=== PATIENT | male | born 1960 | race African-American/Black ===

== ENCOUNTER 2020-12-24 12:12 | Inpatient (IN) | payer OTHER ==
[2020-12-24 13:36] VITALS: BMI 21.1
[2020-12-24] MEDS ORDERED: ACETAMINOPHEN 325 MG TABLET (FP) PO PRN ×2 (13:36)
[2020-12-24] MEDS ORDERED: MAG HYDROX/AL HYDROX/SIMETH 30 ML UNIT-DOSE CUP PO PRN (13:36)
[2020-12-24] MEDS ORDERED: ONDANSETRON *ODT* 4 MG TABLET SL PRN (13:36)
[2020-12-24] MEDS ORDERED: chlordiazePOXIDE HCL 25 MG CAPSULE PO PRN (13:36)
[2020-12-24] MEDS ORDERED: IBUPROFEN 400 MG TABLET (FP) PO PRN (13:36)
[2020-12-24] MEDS ORDERED: MAGNESIUM CITRATE 300 ML BOTTLE PO PRN (13:36)
[2020-12-24] MEDS ORDERED: MAGNESIUM HYDROX 2400MG/30ML ORAL SUSPENSION 30 ML CUP PO PRN (13:36)
[2020-12-24] MEDS ORDERED: METHOCARBAMOL 500 MG TABLET PO PRN (13:36)
[2020-12-24 14:53] LABS: HEMATOCRIT 34.1 % (35.4-49); HEMOGLOBIN 11.2 GM/dL (11.7-16.9); MCH 30.2 pg (25.7-33.7); MCHC 32.8 g/dl (32.0-35.9); MEAN CELL VOLUME 92.2 fl (80-96); MEAN PLT VOLUME 10.7 fl (7.5-11.1); PLATELET COUNT 68 K/MM3 (134-434); RDW 17.1 % (11.9-15.9); WHITE BLOOD COUNT 2.6 K/mm3 (4.0-10.0)
[2020-12-24 14:56] LABS: POTASSIUM 4.2 mmol/L (3.5-5.1)
[2020-12-24 15:03] LABS: BLOOD UREA NITROGEN 20.2 mg/dL (7-18)
[2020-12-24 15:04] LABS: ALBUMIN 2.9 g/dl (3.4-5.0)
[2020-12-24 15:05] LABS: BILIRUBIN,TOTAL 0.4 mg/dL (0.2-1); TOT PROT 8.1 g/dl (6.4-8.2)
[2020-12-24 15:07] LABS: CREATININE 1.9 mg/dL (0.55-1.3)
[2020-12-24] MEDS: PRENATAL VITAMINS W/ FOLIC ACID TABLET (FP) PO SCH (15:51)
[2020-12-24] MEDS: hydrOXYzine PAMOATE 25 MG CAPSULE (FP) PO SCH ×3 (15:53→22:48)
[2020-12-24] MEDS: cloNIDine HCL 0.1 MG TABLET PO SCH (17:30)
[2020-12-24] MEDS: chlordiazePOXIDE HCL 25 MG CAPSULE PO SCH ×2 (17:31→23:06)
[2020-12-24] MEDS: amLODIPine BESYLATE 10 MG TABLET (FP) PO SCH (17:32)
[2020-12-24] MEDS: MELATONIN 5 MG TABLETS PO SCH (22:48)
[2020-12-24] MEDS: MIRTAZAPINE 15 MG TABLET (FP) PO SCH (22:48)
[2020-12-24] MEDS: THIAMINE HCL 100 MG TABLET (FP) PO SCH (22:48)
[2020-12-25] MEDS: chlordiazePOXIDE HCL 25 MG CAPSULE PO SCH ×4 (05:05→22:19)
[2020-12-25] MEDS: hydrOXYzine PAMOATE 25 MG CAPSULE (FP) PO SCH ×5 (05:06→22:19)
[2020-12-25] MEDS: PRENATAL VITAMINS W/ FOLIC ACID TABLET (FP) PO SCH (10:30)
[2020-12-25] MEDS: amLODIPine BESYLATE 10 MG TABLET (FP) PO SCH (10:30)
[2020-12-25] MEDS: BISMUTH SUBSALICYLATE 524 MG/30 ML UD PO PRN (10:35)
[2020-12-25] MEDS: METHADONE HCL 40 MG DISPERSABLE TABLET PO SCH (10:38)
[2020-12-25] MEDS: cloNIDine HCL 0.1 MG TABLET PO SCH (10:39)
[2020-12-25 16:34] LABS: HEMOGLOBIN 11.1 GM/dL (11.7-16.9); MCHC 32.5 g/dl (32.0-35.9); MEAN CELL VOLUME 92.5 fl (80-96); MEAN PLT VOLUME 10.7 fl (7.5-11.1); PLATELET COUNT 63 K/MM3 (134-434); POTASSIUM 4.1 mmol/L (3.5-5.1); RBC 3.68 M/mm3 (4.00-5.60); RDW 17.2 % (11.9-15.9)
[2020-12-25 16:37] LABS: CALCIUM 7.8 mg/dL (8.5-10.1)
[2020-12-25 16:38] LABS: ALBUMIN 2.8 g/dl (3.4-5.0); BLOOD UREA NITROGEN 21.4 mg/dL (7-18)
[2020-12-25 16:41] LABS: CREATININE 1.8 mg/dL (0.55-1.3)
[2020-12-25 16:42] LABS: TOT PROT 7.5 g/dl (6.4-8.2)
[2020-12-25 16:48] LABS: INR 1.03 (0.83-1.09); PROTHROMBIN TIME (PATIENT) 12.4 SEC (9.7-13.0)
[2020-12-25] MEDS: MIRTAZAPINE 15 MG TABLET (FP) PO SCH (22:19)
[2020-12-25] MEDS: MELATONIN 5 MG TABLETS PO SCH (22:19)
[2020-12-25] MEDS: THIAMINE HCL 100 MG TABLET (FP) PO SCH (22:19)
[2020-12-25] MEDS: MENTHOL/PHENOL 1 EACH UD MM PRN (22:21)
[2020-12-26] MEDS: chlordiazePOXIDE HCL 25 MG CAPSULE PO SCH ×4 (06:42→22:10)
[2020-12-26] MEDS: hydrOXYzine PAMOATE 25 MG CAPSULE (FP) PO SCH ×5 (06:42→22:10)
[2020-12-26] MEDS: METHADONE HCL 40 MG DISPERSABLE TABLET PO SCH (06:48)
[2020-12-26] MEDS: MENTHOL/PHENOL 1 EACH UD MM PRN ×3 (06:50→22:14)
[2020-12-26] MEDS: cloNIDine HCL 0.1 MG TABLET PO SCH (10:00)
[2020-12-26] MEDS: amLODIPine BESYLATE 10 MG TABLET (FP) PO SCH (10:00)
[2020-12-26] MEDS: PRENATAL VITAMINS W/ FOLIC ACID TABLET (FP) PO SCH (10:01)
[2020-12-26] MEDS: MELATONIN 5 MG TABLETS PO SCH (22:10)
[2020-12-26] MEDS: MIRTAZAPINE 15 MG TABLET (FP) PO SCH (22:10)
[2020-12-26] MEDS: THIAMINE HCL 100 MG TABLET (FP) PO SCH (22:11)
[2020-12-26] MEDS: BISMUTH SUBSALICYLATE 524 MG/30 ML UD PO PRN (22:14)
[2020-12-27] MEDS ORDERED: chlordiazePOXIDE HCL 10 MG CAPSULE PO PRN
[2020-12-27] MEDS: hydrOXYzine PAMOATE 25 MG CAPSULE (FP) PO SCH ×5 (05:53→22:57)
[2020-12-27] MEDS: METHADONE HCL 40 MG DISPERSABLE TABLET PO SCH (05:54)
[2020-12-27] MEDS: chlordiazePOXIDE HCL 10 MG CAPSULE PO SCH ×4 (05:54→22:56)
[2020-12-27] MEDS: PRENATAL VITAMINS W/ FOLIC ACID TABLET (FP) PO SCH (10:18)
[2020-12-27] MEDS: amLODIPine BESYLATE 10 MG TABLET (FP) PO SCH (10:18)
[2020-12-27] MEDS: cloNIDine HCL 0.1 MG TABLET PO SCH (10:19)
[2020-12-27] MEDS: CALCIUM CARBONATE 650 MG TABLET PO SCH ×2 (15:34→22:55)
[2020-12-27 16:57] LABS: POTASSIUM 4.3 mmol/L (3.5-5.1)
[2020-12-27 16:59] LABS: BASO % 1.4 % (0-2.0); EOS % 0.9 % (0-4.5); HEMATOCRIT 35.8 % (35.4-49); HEMOGLOBIN 11.6 GM/dL (11.7-16.9); LYMPH % 64.4 % (8-40); MCHC 32.3 g/dl (32.0-35.9); MEAN PLT VOLUME 11.5 fl (7.5-11.1); MONO % 4.4 % (3.8-10.2); NEUT % 28.9 % (42.8-82.8); PLATELET COUNT 69 K/MM3 (134-434); RBC 3.85 M/mm3 (4.00-5.60); RDW 17.1 % (11.9-15.9); WHITE BLOOD COUNT 3.7 K/mm3 (4.0-10.0)
[2020-12-27 17:02] LABS: BLOOD UREA NITROGEN 19.2 mg/dL (7-18); CALCIUM 8.1 mg/dL (8.5-10.1)
[2020-12-27 17:05] LABS: CREATININE 1.7 mg/dL (0.55-1.3)
[2020-12-27 18:00] LABS: ANISOCYTOSIS 1+; MACROCYTOSIS 0; PLATELET ESTIMATE DECREASED
[2020-12-27] MEDS: THIAMINE HCL 100 MG TABLET (FP) PO SCH (22:57)
[2020-12-27] MEDS: MIRTAZAPINE 15 MG TABLET (FP) PO SCH (22:57)
[2020-12-27] MEDS: MELATONIN 5 MG TABLETS PO SCH (22:57)
[2020-12-28] MEDS: METHADONE HCL 40 MG DISPERSABLE TABLET PO SCH (05:38)
[2020-12-28] MEDS: chlordiazePOXIDE HCL 10 MG CAPSULE PO SCH ×2 (05:38→17:54)
[2020-12-28] MEDS: hydrOXYzine PAMOATE 25 MG CAPSULE (FP) PO SCH ×2 (05:39→10:31)
[2020-12-28] MEDS: MENTHOL/PHENOL 1 EACH UD MM PRN ×3 (05:42→19:00)
[2020-12-28] MEDS: CALCIUM CARBONATE 650 MG TABLET PO SCH ×2 (10:31→22:16)
[2020-12-28] MEDS: cloNIDine HCL 0.1 MG TABLET PO SCH (10:31)
[2020-12-28] MEDS: PRENATAL VITAMINS W/ FOLIC ACID TABLET (FP) PO SCH (10:31)
[2020-12-28] MEDS: amLODIPine BESYLATE 10 MG TABLET (FP) PO SCH (10:32)
[2020-12-28] MEDS ORDERED: hydrOXYzine PAMOATE 25 MG CAPSULE (FP) PO SCH (11:45)
[2020-12-28] MEDS ORDERED: hydrOXYzine PAMOATE 25 MG CAPSULE (FP) PO PRN (12:51)
[2020-12-28] MEDS ORDERED: chlordiazePOXIDE HCL 25 MG CAPSULE PO PRN (12:51)
[2020-12-28] MEDS: MIRTAZAPINE 15 MG TABLET (FP) PO SCH (22:16)
[2020-12-28] MEDS: THIAMINE HCL 100 MG TABLET (FP) PO SCH (22:16)
[2020-12-28] MEDS: MELATONIN 5 MG TABLETS PO SCH (22:16)
[2020-12-29] MEDS ORDERED: chlordiazePOXIDE HCL 10 MG CAPSULE PO ONE (05:00)
[2020-12-29] MEDS: METHADONE HCL 40 MG DISPERSABLE TABLET PO SCH (05:01)
[2020-12-29] MEDS: CALCIUM CARBONATE 650 MG TABLET PO SCH ×2 (10:08→22:15)
[2020-12-29] MEDS: PRENATAL VITAMINS W/ FOLIC ACID TABLET (FP) PO SCH (10:09)
[2020-12-29] MEDS: amLODIPine BESYLATE 10 MG TABLET (FP) PO SCH (10:09)
[2020-12-29] MEDS: cloNIDine HCL 0.1 MG TABLET PO SCH (10:09)
[2020-12-29] MEDS: MIRTAZAPINE 15 MG TABLET (FP) PO SCH (22:14)
[2020-12-29] MEDS: MELATONIN 5 MG TABLETS PO SCH (22:15)
[2020-12-29] MEDS: THIAMINE HCL 100 MG TABLET (FP) PO SCH (22:15)
[2020-12-29] MEDS: MENTHOL/PHENOL 1 EACH UD MM PRN (22:16)
[2020-12-30] MEDS: METHADONE HCL 40 MG DISPERSABLE TABLET PO SCH (06:30)
[2020-12-30 07:13] VITALS: BP 141/78; PULSE 92; TEMP 98.1
== END 2020-12-29 23:28 | disposition other institution (70) | DRG 773 ==
LOC: YASAS 12:12 → UNDOADMIN 14:33 → Y3N 14:33 → UNDOADMIN 12-29 22:49 → Y3W 12-29 22:49 → Y3N 12-29 22:49 → Y3W 12-29 23:50 → Y3N 12-29 23:59 → Y3W 12-29 23:59
PROVIDERS: ADMIT Allergy & Immunology; ATTEND Allergy & Immunology
PROC: HZ2ZZZZ Detoxification Services for Substance Abuse Treatment (ICD-10-PCS; principal; 2020-12-24)
DX: F10.230 Alcohol dependence with withdrawal, uncomplicated (principal); F13.20 Sedative, hypnotic or anxiolytic dependence, uncomplicated; F11.20 Opioid dependence, uncomplicated; Z21 Asymptomatic human immunodeficiency virus [HIV] infection status; D61.818 Other pancytopenia; N17.9 Acute kidney failure, unspecified; E88.09 Other disorders of plasma-protein metabolism, not elsewhere classified; D72.819 Decreased white blood cell count, unspecified; I12.9 Hypertensive chronic kidney disease with stage 1 through stage 4 chronic kidney disease, or unspecified chronic kidney disease; N18.9 Chronic kidney disease, unspecified; M17.0 Bilateral primary osteoarthritis of knee; G47.00 Insomnia, unspecified; R74.01 Elevation of levels of liver transaminase levels; Z56.0 Unemployment, unspecified; Z59.0 Homelessness
CPT/HCPCS: 36415; 80048; 80053; 85025; 85027; 85610; 86780; C9803; J0735; U0003

== ENCOUNTER 2020-12-29 22:49 | Inpatient (IN) | payer OTHER ==
[2020-12-30] MEDS ORDERED: IBUPROFEN 400 MG TABLET (FP) PO PRN (10:41)
[2020-12-30] MEDS ORDERED: ACETAMINOPHEN 325 MG TABLET (FP) PO PRN (10:41)
[2020-12-30] MEDS ORDERED: NICOTINE POLACRILEX 2 MG GUM BUC PRN (10:41)
[2020-12-30] MEDS ORDERED: P-EPHED 60MG/TRIPROLIDI 2.5MG TABLET PO PRN (10:41)
[2020-12-30] MEDS ORDERED: MAG HYDROX/AL HYDROX/SIMETH 30 ML UNIT-DOSE CUP PO PRN (10:41)
[2020-12-30] MEDS ORDERED: guaiFENesin 200 MG/10 ML 10 ML UNIT-DOSE CUPS PO PRN (10:41)
[2020-12-30] MEDS ORDERED: LOPERAMIDE HCL 2 MG CAPSULE PO PRN (10:41)
[2020-12-30] MEDS ORDERED: MAGNESIUM CITRATE 300 ML BOTTLE PO PRN (10:41)
[2020-12-30] MEDS ORDERED: cloNIDine HCL 0.1 MG TABLET PO SCH (11:11)
[2020-12-30] MEDS ORDERED: amLODIPine BESYLATE 10 MG TABLET (FP) PO SCH (11:11)
[2020-12-30] MEDS ORDERED: CALCIUM CARBONATE 650 MG TABLET PO SCH (11:13)
[2020-12-30] MEDS ORDERED: amLODIPine BESYLATE 10 MG TABLET (FP) PO ONE (12:11)
[2020-12-30] MEDS ORDERED: CALCIUM CARBONATE 650 MG TABLET PO ONE (12:13)
[2020-12-30] MEDS ORDERED: cloNIDine HCL 0.1 MG TABLET PO ONE (12:18)
[2020-12-30] MEDS ORDERED: hydrOXYzine PAMOATE 25 MG CAPSULE (FP) PO SCH (14:00)
[2020-12-30] MEDS: MAGNESIUM HYDROX 2400MG/30ML ORAL SUSPENSION 30 ML CUP PO PRN (15:36)
[2020-12-30] MEDS ORDERED: LORATADINE 10 MG TABLET PO PRN (15:53)
[2020-12-30] MEDS: MELATONIN 5 MG TABLETS PO SCH (21:20)
[2020-12-30] MEDS: THIAMINE HCL 100 MG TABLET (FP) PO SCH (21:20)
[2020-12-30] MEDS: MIRTAZAPINE 15 MG TABLET (FP) PO SCH (21:21)
[2020-12-30] MEDS: hydrOXYzine PAMOATE 25 MG CAPSULE (FP) PO PRN (21:22)
[2020-12-30] MEDS ORDERED: DOCUSATE SODIUM 100 MG CAPSULE (FP) PO SCH (22:00)
[2020-12-31] MEDS: hydrOXYzine PAMOATE 25 MG CAPSULE (FP) PO PRN ×3 (06:30→21:15)
[2020-12-31] MEDS: MENTHOL/PHENOL 1 EACH UD MM PRN (06:30)
[2020-12-31] MEDS: METHADONE HCL 40 MG DISPERSABLE TABLET PO SCH (06:30)
[2020-12-31] MEDS ORDERED: PRENATAL VITAMINS W/ FOLIC ACID TABLET (FP) PO SCH (10:00)
[2020-12-31] MEDS ORDERED: cloNIDine HCL 0.1 MG TABLET PO SCH (10:00)
[2020-12-31] MEDS ORDERED: amLODIPine BESYLATE 10 MG TABLET (FP) PO SCH (10:00)
[2020-12-31] MEDS ORDERED: CALCIUM CARBONATE 650 MG TABLET PO SCH (10:00)
[2020-12-31] MEDS ORDERED: NICOTINE 7 MG/24 HOURS TOPICAL PATCH TD SCH (10:00)
[2020-12-31] MEDS: DOCUSATE SODIUM 100 MG CAPSULE (FP) PO SCH (10:49)
[2020-12-31] MEDS: cloNIDine HCL 0.1 MG TABLET PO SCH (10:50)
[2020-12-31] MEDS: CALCIUM CARBONATE 650 MG TABLET PO SCH (10:50)
[2020-12-31] MEDS: amLODIPine BESYLATE 10 MG TABLET (FP) PO SCH (10:50)
[2020-12-31] MEDS: PRENATAL VITAMINS W/ FOLIC ACID TABLET (FP) PO SCH (10:50)
[2020-12-31] MEDS: THIAMINE HCL 100 MG TABLET (FP) PO SCH (21:13)
[2020-12-31] MEDS: MIRTAZAPINE 15 MG TABLET (FP) PO SCH (21:13)
[2020-12-31] MEDS: MELATONIN 5 MG TABLETS PO SCH (21:13)
[2020-12-31] MEDS: MAGNESIUM HYDROX 2400MG/30ML ORAL SUSPENSION 30 ML CUP PO PRN (21:15)
[2021-01-01] MEDS: hydrOXYzine PAMOATE 25 MG CAPSULE (FP) PO PRN ×2 (05:59→10:45)
[2021-01-01] MEDS: METHADONE HCL 40 MG DISPERSABLE TABLET PO SCH (05:59)
[2021-01-01] MEDS: amLODIPine BESYLATE 10 MG TABLET (FP) PO SCH (10:45)
[2021-01-01] MEDS: DOCUSATE SODIUM 100 MG CAPSULE (FP) PO SCH (10:45)
[2021-01-01] MEDS: cloNIDine HCL 0.1 MG TABLET PO SCH (10:46)
[2021-01-01] MEDS: CALCIUM CARBONATE 650 MG TABLET PO SCH (10:46)
[2021-01-01] MEDS: PRENATAL VITAMINS W/ FOLIC ACID TABLET (FP) PO SCH (10:46)
[2021-01-01] MEDS: MENTHOL/PHENOL 1 EACH UD MM PRN (10:48)
[2021-01-01] MEDS: THIAMINE HCL 100 MG TABLET (FP) PO SCH (21:29)
[2021-01-01] MEDS: MIRTAZAPINE 15 MG TABLET (FP) PO SCH (21:29)
[2021-01-01] MEDS: MELATONIN 5 MG TABLETS PO SCH (21:29)
[2021-01-02] MEDS: METHADONE HCL 40 MG DISPERSABLE TABLET PO SCH (06:34)
[2021-01-02] MEDS: DOCUSATE SODIUM 100 MG CAPSULE (FP) PO SCH (10:57)
[2021-01-02] MEDS: PRENATAL VITAMINS W/ FOLIC ACID TABLET (FP) PO SCH (10:57)
[2021-01-02] MEDS: cloNIDine HCL 0.1 MG TABLET PO SCH (10:58)
[2021-01-02] MEDS: amLODIPine BESYLATE 10 MG TABLET (FP) PO SCH (10:58)
[2021-01-02] MEDS: CALCIUM CARBONATE 650 MG TABLET PO SCH (10:58)
[2021-01-02] MEDS: MAGNESIUM HYDROX 2400MG/30ML ORAL SUSPENSION 30 ML CUP PO PRN (15:41)
[2021-01-02] MEDS: THIAMINE HCL 100 MG TABLET (FP) PO SCH (21:04)
[2021-01-02] MEDS: MIRTAZAPINE 15 MG TABLET (FP) PO SCH (21:04)
[2021-01-02] MEDS: MELATONIN 5 MG TABLETS PO SCH (21:04)
[2021-01-03] MEDS: METHADONE HCL 40 MG DISPERSABLE TABLET PO SCH (06:34)
[2021-01-03] MEDS: MAGNESIUM HYDROX 2400MG/30ML ORAL SUSPENSION 30 ML CUP PO PRN (06:36)
[2021-01-03] MEDS: CALCIUM CARBONATE 650 MG TABLET PO SCH (09:44)
[2021-01-03] MEDS: DOCUSATE SODIUM 100 MG CAPSULE (FP) PO SCH (09:45)
[2021-01-03] MEDS: cloNIDine HCL 0.1 MG TABLET PO SCH (09:45)
[2021-01-03] MEDS: amLODIPine BESYLATE 10 MG TABLET (FP) PO SCH (09:47)
[2021-01-03] MEDS: PRENATAL VITAMINS W/ FOLIC ACID TABLET (FP) PO SCH (09:47)
[2021-01-03] MEDS: MENTHOL/PHENOL 1 EACH UD MM PRN (09:49)
[2021-01-03] MEDS: MIRTAZAPINE 15 MG TABLET (FP) PO SCH (21:29)
[2021-01-03] MEDS: MELATONIN 5 MG TABLETS PO SCH (21:29)
[2021-01-03] MEDS: THIAMINE HCL 100 MG TABLET (FP) PO SCH (21:29)
[2021-01-04] MEDS: METHADONE HCL 40 MG DISPERSABLE TABLET PO SCH (06:28)
[2021-01-04] MEDS: PRENATAL VITAMINS W/ FOLIC ACID TABLET (FP) PO SCH (10:51)
[2021-01-04] MEDS: cloNIDine HCL 0.1 MG TABLET PO SCH (10:51)
[2021-01-04] MEDS: DOCUSATE SODIUM 100 MG CAPSULE (FP) PO SCH (10:52)
[2021-01-04] MEDS: CALCIUM CARBONATE 650 MG TABLET PO SCH (10:52)
[2021-01-04] MEDS: amLODIPine BESYLATE 10 MG TABLET (FP) PO SCH (10:52)
[2021-01-04] MEDS: MELATONIN 5 MG TABLETS PO SCH (21:07)
[2021-01-04] MEDS: PSYLLIUM 5.85 GM PACKET PO SCH (21:09)
[2021-01-04] MEDS: MIRTAZAPINE 15 MG TABLET (FP) PO SCH (21:09)
[2021-01-04] MEDS: THIAMINE HCL 100 MG TABLET (FP) PO SCH (21:09)
[2021-01-05] MEDS: METHADONE HCL 40 MG DISPERSABLE TABLET PO SCH (05:56)
[2021-01-05] MEDS: PRENATAL VITAMINS W/ FOLIC ACID TABLET (FP) PO SCH (10:33)
[2021-01-05] MEDS: CALCIUM CARBONATE 650 MG TABLET PO SCH (10:33)
[2021-01-05] MEDS: cloNIDine HCL 0.1 MG TABLET PO SCH (10:33)
[2021-01-05] MEDS: DOCUSATE SODIUM 100 MG CAPSULE (FP) PO SCH (10:33)
[2021-01-05] MEDS: PSYLLIUM 5.85 GM PACKET PO SCH ×2 (10:34→21:03)
[2021-01-05] MEDS: amLODIPine BESYLATE 10 MG TABLET (FP) PO SCH (10:37)
[2021-01-05] MEDS: MIRTAZAPINE 15 MG TABLET (FP) PO SCH (21:02)
[2021-01-05] MEDS: THIAMINE HCL 100 MG TABLET (FP) PO SCH (21:02)
[2021-01-05] MEDS: MELATONIN 5 MG TABLETS PO SCH (21:03)
[2021-01-06] MEDS: METHADONE HCL 40 MG DISPERSABLE TABLET PO SCH (05:58)
[2021-01-06] MEDS: PRENATAL VITAMINS W/ FOLIC ACID TABLET (FP) PO SCH (09:53)
[2021-01-06] MEDS: DOCUSATE SODIUM 100 MG CAPSULE (FP) PO SCH (09:53)
[2021-01-06] MEDS: cloNIDine HCL 0.1 MG TABLET PO SCH (09:54)
[2021-01-06] MEDS: PSYLLIUM 5.85 GM PACKET PO SCH ×2 (09:54→21:06)
[2021-01-06] MEDS: amLODIPine BESYLATE 10 MG TABLET (FP) PO SCH (09:54)
[2021-01-06] MEDS: CALCIUM CARBONATE 650 MG TABLET PO SCH (09:55)
[2021-01-06] MEDS: MELATONIN 5 MG TABLETS PO SCH (21:06)
[2021-01-06] MEDS: MIRTAZAPINE 15 MG TABLET (FP) PO SCH (21:06)
[2021-01-06] MEDS: THIAMINE HCL 100 MG TABLET (FP) PO SCH (21:06)
[2021-01-07] MEDS: METHADONE HCL 40 MG DISPERSABLE TABLET PO SCH (06:13)
[2021-01-07] MEDS: PRENATAL VITAMINS W/ FOLIC ACID TABLET (FP) PO SCH (10:41)
[2021-01-07] MEDS: SIMETHICONE 80 MG TAB.CHEW (FP) PO PRN (10:41)
[2021-01-07] MEDS: cloNIDine HCL 0.1 MG TABLET PO SCH (10:41)
[2021-01-07] MEDS: DOCUSATE SODIUM 100 MG CAPSULE (FP) PO SCH (10:41)
[2021-01-07] MEDS: CALCIUM CARBONATE 650 MG TABLET PO SCH (10:42)
[2021-01-07] MEDS: PSYLLIUM 5.85 GM PACKET PO SCH ×2 (10:42→21:33)
[2021-01-07] MEDS: amLODIPine BESYLATE 10 MG TABLET (FP) PO SCH (10:42)
[2021-01-07] MEDS: MIRTAZAPINE 15 MG TABLET (FP) PO SCH (21:31)
[2021-01-07] MEDS: MELATONIN 5 MG TABLETS PO SCH (21:31)
[2021-01-07] MEDS: THIAMINE HCL 100 MG TABLET (FP) PO SCH (21:31)
[2021-01-08] MEDS: METHADONE HCL 40 MG DISPERSABLE TABLET PO SCH (06:17)
[2021-01-08] MEDS: DOCUSATE SODIUM 100 MG CAPSULE (FP) PO SCH (11:34)
[2021-01-08] MEDS: PRENATAL VITAMINS W/ FOLIC ACID TABLET (FP) PO SCH (11:34)
[2021-01-08] MEDS: CALCIUM CARBONATE 650 MG TABLET PO SCH (11:35)
[2021-01-08] MEDS: PSYLLIUM 5.85 GM PACKET PO SCH ×2 (11:35→21:14)
[2021-01-08] MEDS: amLODIPine BESYLATE 10 MG TABLET (FP) PO SCH (11:35)
[2021-01-08] MEDS: SIMETHICONE 80 MG TAB.CHEW (FP) PO PRN (11:35)
[2021-01-08] MEDS: cloNIDine HCL 0.1 MG TABLET PO SCH (11:35)
[2021-01-08] MEDS: MELATONIN 5 MG TABLETS PO SCH (21:12)
[2021-01-08] MEDS: MIRTAZAPINE 15 MG TABLET (FP) PO SCH (21:13)
[2021-01-08] MEDS: THIAMINE HCL 100 MG TABLET (FP) PO SCH (21:13)
[2021-01-09] MEDS: METHADONE HCL 40 MG DISPERSABLE TABLET PO SCH (06:32)
[2021-01-09] MEDS: amLODIPine BESYLATE 10 MG TABLET (FP) PO SCH (10:53)
[2021-01-09] MEDS: DOCUSATE SODIUM 100 MG CAPSULE (FP) PO SCH (10:53)
[2021-01-09] MEDS: cloNIDine HCL 0.1 MG TABLET PO SCH (10:53)
[2021-01-09] MEDS: SIMETHICONE 80 MG TAB.CHEW (FP) PO PRN (10:54)
[2021-01-09] MEDS: PRENATAL VITAMINS W/ FOLIC ACID TABLET (FP) PO SCH (10:54)
[2021-01-09] MEDS: PSYLLIUM 5.85 GM PACKET PO SCH ×2 (10:54→21:52)
[2021-01-09] MEDS: CALCIUM CARBONATE 650 MG TABLET PO SCH (10:57)
[2021-01-09] MEDS: THIAMINE HCL 100 MG TABLET (FP) PO SCH (21:51)
[2021-01-09] MEDS: MIRTAZAPINE 15 MG TABLET (FP) PO SCH (21:51)
[2021-01-09] MEDS: hydrOXYzine PAMOATE 25 MG CAPSULE (FP) PO PRN (21:51)
[2021-01-09] MEDS: MELATONIN 5 MG TABLETS PO SCH (21:52)
[2021-01-10] MEDS: METHADONE HCL 40 MG DISPERSABLE TABLET PO SCH (06:17)
[2021-01-10] MEDS ORDERED: PT OWN MED DRAWER 7, Y5N ONE (09:23)
[2021-01-10] MEDS: cloNIDine HCL 0.1 MG TABLET PO SCH (10:39)
[2021-01-10] MEDS: PRENATAL VITAMINS W/ FOLIC ACID TABLET (FP) PO SCH (10:39)
[2021-01-10] MEDS: amLODIPine BESYLATE 10 MG TABLET (FP) PO SCH (10:39)
[2021-01-10] MEDS: DOCUSATE SODIUM 100 MG CAPSULE (FP) PO SCH (10:39)
[2021-01-10] MEDS: hydrOXYzine PAMOATE 25 MG CAPSULE (FP) PO PRN ×2 (10:39→21:08)
[2021-01-10] MEDS: CALCIUM CARBONATE 650 MG TABLET PO SCH (10:40)
[2021-01-10] MEDS: PSYLLIUM 5.85 GM PACKET PO SCH ×2 (10:40→21:07)
[2021-01-10] MEDS: THIAMINE HCL 100 MG TABLET (FP) PO SCH (21:06)
[2021-01-10] MEDS: MIRTAZAPINE 15 MG TABLET (FP) PO SCH (21:07)
[2021-01-10] MEDS: MELATONIN 5 MG TABLETS PO SCH (21:07)
[2021-01-11] MEDS: METHADONE HCL 40 MG DISPERSABLE TABLET PO SCH (06:04)
[2021-01-11] MEDS: hydrOXYzine PAMOATE 25 MG CAPSULE (FP) PO PRN ×2 (10:37→22:20)
[2021-01-11] MEDS: DOCUSATE SODIUM 100 MG CAPSULE (FP) PO SCH (10:37)
[2021-01-11] MEDS: SIMETHICONE 80 MG TAB.CHEW (FP) PO PRN (10:37)
[2021-01-11] MEDS: cloNIDine HCL 0.1 MG TABLET PO SCH (10:37)
[2021-01-11] MEDS: PRENATAL VITAMINS W/ FOLIC ACID TABLET (FP) PO SCH (10:37)
[2021-01-11] MEDS: PSYLLIUM 5.85 GM PACKET PO SCH ×2 (10:38→22:21)
[2021-01-11] MEDS: CALCIUM CARBONATE 650 MG TABLET PO SCH (10:38)
[2021-01-11] MEDS: amLODIPine BESYLATE 10 MG TABLET (FP) PO SCH (10:38)
[2021-01-11] MEDS: MELATONIN 5 MG TABLETS PO SCH (22:20)
[2021-01-11] MEDS: THIAMINE HCL 100 MG TABLET (FP) PO SCH (22:20)
[2021-01-11] MEDS: MIRTAZAPINE 15 MG TABLET (FP) PO SCH (22:20)
[2021-01-11] MEDS: MENTHOL/PHENOL 1 EACH UD MM PRN (22:22)
[2021-01-12] MEDS: METHADONE HCL 40 MG DISPERSABLE TABLET PO SCH (06:44)
[2021-01-12] MEDS: MENTHOL/PHENOL 1 EACH UD MM PRN ×3 (06:45→21:05)
[2021-01-12] MEDS: cloNIDine HCL 0.1 MG TABLET PO SCH (10:48)
[2021-01-12] MEDS: DOCUSATE SODIUM 100 MG CAPSULE (FP) PO SCH (10:48)
[2021-01-12] MEDS: SIMETHICONE 80 MG TAB.CHEW (FP) PO PRN (10:48)
[2021-01-12] MEDS: CALCIUM CARBONATE 650 MG TABLET PO SCH (10:48)
[2021-01-12] MEDS: PRENATAL VITAMINS W/ FOLIC ACID TABLET (FP) PO SCH (10:50)
[2021-01-12] MEDS: PSYLLIUM 5.85 GM PACKET PO SCH ×2 (10:51→21:06)
[2021-01-12] MEDS: amLODIPine BESYLATE 10 MG TABLET (FP) PO SCH (10:51)
[2021-01-12] MEDS: MELATONIN 5 MG TABLETS PO SCH (21:02)
[2021-01-12] MEDS: THIAMINE HCL 100 MG TABLET (FP) PO SCH (21:02)
[2021-01-12] MEDS: MIRTAZAPINE 15 MG TABLET (FP) PO SCH (21:02)
[2021-01-12] MEDS: hydrOXYzine PAMOATE 25 MG CAPSULE (FP) PO PRN (21:03)
[2021-01-13] MEDS: METHADONE HCL 40 MG DISPERSABLE TABLET PO SCH (06:03)
[2021-01-13] MEDS: MENTHOL/PHENOL 1 EACH UD MM PRN ×3 (06:24→21:24)
[2021-01-13] MEDS: PRENATAL VITAMINS W/ FOLIC ACID TABLET (FP) PO SCH (09:52)
[2021-01-13] MEDS: cloNIDine HCL 0.1 MG TABLET PO SCH (09:52)
[2021-01-13] MEDS: DOCUSATE SODIUM 100 MG CAPSULE (FP) PO SCH (09:53)
[2021-01-13] MEDS: amLODIPine BESYLATE 10 MG TABLET (FP) PO SCH (09:53)
[2021-01-13] MEDS: PSYLLIUM 5.85 GM PACKET PO SCH (09:53)
[2021-01-13] MEDS: CALCIUM CARBONATE 650 MG TABLET PO SCH (09:53)
[2021-01-13] MEDS: hydrOXYzine PAMOATE 25 MG CAPSULE (FP) PO PRN ×2 (09:54→21:24)
[2021-01-13] MEDS: THIAMINE HCL 100 MG TABLET (FP) PO SCH (21:22)
[2021-01-13] MEDS: MELATONIN 5 MG TABLETS PO SCH (21:22)
[2021-01-13] MEDS: MIRTAZAPINE 15 MG TABLET (FP) PO SCH (21:22)
[2021-01-14] MEDS: METHADONE HCL 40 MG DISPERSABLE TABLET PO SCH (06:12)
[2021-01-14] MEDS: DOCUSATE SODIUM 100 MG CAPSULE (FP) PO SCH (10:28)
[2021-01-14] MEDS: CALCIUM CARBONATE 650 MG TABLET PO SCH (10:28)
[2021-01-14] MEDS: cloNIDine HCL 0.1 MG TABLET PO SCH (10:28)
[2021-01-14] MEDS: hydrOXYzine PAMOATE 25 MG CAPSULE (FP) PO PRN ×2 (10:28→21:01)
[2021-01-14] MEDS: PRENATAL VITAMINS W/ FOLIC ACID TABLET (FP) PO SCH (10:28)
[2021-01-14] MEDS: amLODIPine BESYLATE 10 MG TABLET (FP) PO SCH (10:29)
[2021-01-14] MEDS: MENTHOL/PHENOL 1 EACH UD MM PRN (10:31)
[2021-01-14] MEDS: MELATONIN 5 MG TABLETS PO SCH (21:00)
[2021-01-14] MEDS: MIRTAZAPINE 15 MG TABLET (FP) PO SCH (21:00)
[2021-01-14] MEDS: THIAMINE HCL 100 MG TABLET (FP) PO SCH (21:01)
[2021-01-15] MEDS: METHADONE HCL 40 MG DISPERSABLE TABLET PO SCH (06:12)
[2021-01-15] MEDS: PRENATAL VITAMINS W/ FOLIC ACID TABLET (FP) PO SCH (10:09)
[2021-01-15] MEDS: hydrOXYzine PAMOATE 25 MG CAPSULE (FP) PO PRN ×2 (10:10→21:24)
[2021-01-15] MEDS: DOCUSATE SODIUM 100 MG CAPSULE (FP) PO SCH (10:10)
[2021-01-15] MEDS: cloNIDine HCL 0.1 MG TABLET PO SCH (10:10)
[2021-01-15] MEDS: CALCIUM CARBONATE 650 MG TABLET PO SCH (10:10)
[2021-01-15] MEDS: amLODIPine BESYLATE 10 MG TABLET (FP) PO SCH (10:10)
[2021-01-15] MEDS: MELATONIN 5 MG TABLETS PO SCH (21:21)
[2021-01-15] MEDS: MIRTAZAPINE 15 MG TABLET (FP) PO SCH (21:23)
[2021-01-15] MEDS: THIAMINE HCL 100 MG TABLET (FP) PO SCH (21:24)
[2021-01-16] MEDS: METHADONE HCL 40 MG DISPERSABLE TABLET PO SCH (06:15)
[2021-01-16] MEDS: cloNIDine HCL 0.1 MG TABLET PO SCH (10:06)
[2021-01-16] MEDS: PRENATAL VITAMINS W/ FOLIC ACID TABLET (FP) PO SCH (10:06)
[2021-01-16] MEDS: DOCUSATE SODIUM 100 MG CAPSULE (FP) PO SCH (10:07)
[2021-01-16] MEDS: hydrOXYzine PAMOATE 25 MG CAPSULE (FP) PO PRN ×2 (10:07→21:03)
[2021-01-16] MEDS: CALCIUM CARBONATE 650 MG TABLET PO SCH (10:07)
[2021-01-16] MEDS: amLODIPine BESYLATE 10 MG TABLET (FP) PO SCH (10:07)
[2021-01-16] MEDS: MELATONIN 5 MG TABLETS PO SCH (21:02)
[2021-01-16] MEDS: THIAMINE HCL 100 MG TABLET (FP) PO SCH (21:02)
[2021-01-16] MEDS: MIRTAZAPINE 15 MG TABLET (FP) PO SCH (21:02)
[2021-01-17] MEDS: METHADONE HCL 40 MG DISPERSABLE TABLET PO SCH (06:09)
[2021-01-17] MEDS: DOCUSATE SODIUM 100 MG CAPSULE (FP) PO SCH (10:11)
[2021-01-17] MEDS: PRENATAL VITAMINS W/ FOLIC ACID TABLET (FP) PO SCH (10:11)
[2021-01-17] MEDS: cloNIDine HCL 0.1 MG TABLET PO SCH (10:12)
[2021-01-17] MEDS: CALCIUM CARBONATE 650 MG TABLET PO SCH (10:12)
[2021-01-17] MEDS: amLODIPine BESYLATE 10 MG TABLET (FP) PO SCH (10:13)
[2021-01-17] MEDS: hydrOXYzine PAMOATE 25 MG CAPSULE (FP) PO PRN ×2 (10:13→21:23)
[2021-01-17] MEDS: MIRTAZAPINE 15 MG TABLET (FP) PO SCH (21:23)
[2021-01-17] MEDS: MELATONIN 5 MG TABLETS PO SCH (21:23)
[2021-01-17] MEDS: THIAMINE HCL 100 MG TABLET (FP) PO SCH (21:24)
[2021-01-18] MEDS: METHADONE HCL 40 MG DISPERSABLE TABLET PO SCH (06:08)
[2021-01-18] MEDS: CALCIUM CARBONATE 650 MG TABLET PO SCH (10:24)
[2021-01-18] MEDS: amLODIPine BESYLATE 10 MG TABLET (FP) PO SCH (10:24)
[2021-01-18] MEDS: cloNIDine HCL 0.1 MG TABLET PO SCH (10:24)
[2021-01-18] MEDS: PRENATAL VITAMINS W/ FOLIC ACID TABLET (FP) PO SCH (10:24)
[2021-01-18] MEDS: DOCUSATE SODIUM 100 MG CAPSULE (FP) PO SCH (10:25)
[2021-01-18] MEDS: hydrOXYzine PAMOATE 25 MG CAPSULE (FP) PO PRN ×2 (10:25→21:06)
[2021-01-18] MEDS: THIAMINE HCL 100 MG TABLET (FP) PO SCH (21:06)
[2021-01-18] MEDS: MELATONIN 5 MG TABLETS PO SCH (21:07)
[2021-01-18] MEDS: MIRTAZAPINE 15 MG TABLET (FP) PO SCH (21:07)
[2021-01-19] MEDS: METHADONE HCL 40 MG DISPERSABLE TABLET PO SCH (06:25)
[2021-01-19] MEDS: amLODIPine BESYLATE 10 MG TABLET (FP) PO SCH (10:21)
[2021-01-19] MEDS: cloNIDine HCL 0.1 MG TABLET PO SCH (10:21)
[2021-01-19] MEDS: hydrOXYzine PAMOATE 25 MG CAPSULE (FP) PO PRN ×2 (10:21→21:39)
[2021-01-19] MEDS: PRENATAL VITAMINS W/ FOLIC ACID TABLET (FP) PO SCH (10:21)
[2021-01-19] MEDS: DOCUSATE SODIUM 100 MG CAPSULE (FP) PO SCH (10:22)
[2021-01-19] MEDS: CALCIUM CARBONATE 650 MG TABLET PO SCH (10:22)
[2021-01-19] MEDS: MIRTAZAPINE 15 MG TABLET (FP) PO SCH (21:38)
[2021-01-19] MEDS: MELATONIN 5 MG TABLETS PO SCH (21:39)
[2021-01-19] MEDS: THIAMINE HCL 100 MG TABLET (FP) PO SCH (21:39)
[2021-01-20] MEDS: METHADONE HCL 40 MG DISPERSABLE TABLET PO SCH (05:57)
[2021-01-20] MEDS: amLODIPine BESYLATE 10 MG TABLET (FP) PO SCH (10:25)
[2021-01-20] MEDS: cloNIDine HCL 0.1 MG TABLET PO SCH (10:25)
[2021-01-20] MEDS: hydrOXYzine PAMOATE 25 MG CAPSULE (FP) PO PRN ×2 (10:25→21:06)
[2021-01-20] MEDS: CALCIUM CARBONATE 650 MG TABLET PO SCH (10:25)
[2021-01-20] MEDS: PRENATAL VITAMINS W/ FOLIC ACID TABLET (FP) PO SCH (10:26)
[2021-01-20] MEDS: DOCUSATE SODIUM 100 MG CAPSULE (FP) PO SCH (10:26)
[2021-01-20] MEDS ORDERED: MINERAL OIL/PETROLAT/WATER TOPICAL CREAM 113 GM JAR TP PRN (11:56)
[2021-01-20] MEDS: MELATONIN 5 MG TABLETS PO SCH (21:05)
[2021-01-20] MEDS: THIAMINE HCL 100 MG TABLET (FP) PO SCH (21:06)
[2021-01-20] MEDS: MIRTAZAPINE 15 MG TABLET (FP) PO SCH (21:06)
[2021-01-20] MEDS: SIMETHICONE 80 MG TAB.CHEW (FP) PO PRN (21:07)
[2021-01-21] MEDS: METHADONE HCL 40 MG DISPERSABLE TABLET PO SCH (06:18)
[2021-01-21] MEDS: DOCUSATE SODIUM 100 MG CAPSULE (FP) PO SCH (10:36)
[2021-01-21] MEDS: PRENATAL VITAMINS W/ FOLIC ACID TABLET (FP) PO SCH (10:36)
[2021-01-21] MEDS: hydrOXYzine PAMOATE 25 MG CAPSULE (FP) PO PRN ×2 (10:36→21:42)
[2021-01-21] MEDS: CALCIUM CARBONATE 650 MG TABLET PO SCH (10:36)
[2021-01-21] MEDS: amLODIPine BESYLATE 10 MG TABLET (FP) PO SCH (10:36)
[2021-01-21] MEDS: cloNIDine HCL 0.1 MG TABLET PO SCH (10:36)
[2021-01-21] MEDS: SIMETHICONE 80 MG TAB.CHEW (FP) PO PRN ×2 (10:38→21:42)
[2021-01-21] MEDS: MIRTAZAPINE 15 MG TABLET (FP) PO SCH (21:41)
[2021-01-21] MEDS: MELATONIN 5 MG TABLETS PO SCH (21:41)
[2021-01-21] MEDS: THIAMINE HCL 100 MG TABLET (FP) PO SCH (21:42)
[2021-01-22] MEDS: METHADONE HCL 40 MG DISPERSABLE TABLET PO SCH (06:12)
[2021-01-22] MEDS: amLODIPine BESYLATE 10 MG TABLET (FP) PO SCH (10:16)
[2021-01-22] MEDS: cloNIDine HCL 0.1 MG TABLET PO SCH (10:16)
[2021-01-22] MEDS: PRENATAL VITAMINS W/ FOLIC ACID TABLET (FP) PO SCH (10:16)
[2021-01-22] MEDS: CALCIUM CARBONATE 650 MG TABLET PO SCH (10:16)
[2021-01-22] MEDS: hydrOXYzine PAMOATE 25 MG CAPSULE (FP) PO PRN ×2 (10:17→21:06)
[2021-01-22] MEDS: SIMETHICONE 80 MG TAB.CHEW (FP) PO PRN ×2 (10:18→21:08)
[2021-01-22] MEDS: DOCUSATE SODIUM 100 MG CAPSULE (FP) PO SCH (10:18)
[2021-01-22 11:53] LABS: BASO % 0.8 % (0-2.0); EOS % 0.3 % (0-4.5); HEMATOCRIT 32.4 % (35.4-49); HEMOGLOBIN 10.7 GM/dL (11.7-16.9); LYMPH % 41.1 % (8-40); MCH 29.9 pg (25.7-33.7); MCHC 32.9 g/dl (32.0-35.9); MEAN CELL VOLUME 90.8 fl (80-96); MEAN PLT VOLUME 10.7 fl (7.5-11.1); MONO % 8.1 % (3.8-10.2); NEUT % 49.7 % (42.8-82.8); PLATELET COUNT 109 K/MM3 (134-434); RBC 3.57 M/mm3 (4.00-5.60); RDW 15.5 % (11.9-15.9); WHITE BLOOD COUNT 3.4 K/mm3 (4.0-10.0)
[2021-01-22 13:38] LABS: ANISOCYTOSIS 0; MACROCYTOSIS 1+; PLATELET ESTIMATE DECREASED
[2021-01-22] MEDS: MIRTAZAPINE 15 MG TABLET (FP) PO SCH (21:06)
[2021-01-22] MEDS: THIAMINE HCL 100 MG TABLET (FP) PO SCH (21:06)
[2021-01-22] MEDS: MELATONIN 5 MG TABLETS PO SCH (21:06)
[2021-01-22] MEDS ORDERED: PT OWN MED DRAWER 7, Y5N ONE (21:08)
[2021-01-23] MEDS: METHADONE HCL 40 MG DISPERSABLE TABLET PO SCH (06:14)
[2021-01-23] MEDS: DOCUSATE SODIUM 100 MG CAPSULE (FP) PO SCH (10:24)
[2021-01-23] MEDS: amLODIPine BESYLATE 10 MG TABLET (FP) PO SCH (10:24)
[2021-01-23] MEDS: PRENATAL VITAMINS W/ FOLIC ACID TABLET (FP) PO SCH (10:24)
[2021-01-23] MEDS: CALCIUM CARBONATE 650 MG TABLET PO SCH (10:24)
[2021-01-23] MEDS: cloNIDine HCL 0.1 MG TABLET PO SCH (10:24)
[2021-01-23] MEDS: hydrOXYzine PAMOATE 25 MG CAPSULE (FP) PO PRN ×2 (10:25→21:33)
[2021-01-23] MEDS ORDERED: PT OWN MED DRAWER 7, Y5N ONE (10:27)
[2021-01-23] MEDS: SIMETHICONE 80 MG TAB.CHEW (FP) PO PRN (10:27)
[2021-01-23] MEDS: MELATONIN 5 MG TABLETS PO SCH (21:33)
[2021-01-23] MEDS: MIRTAZAPINE 15 MG TABLET (FP) PO SCH (21:33)
[2021-01-23] MEDS: THIAMINE HCL 100 MG TABLET (FP) PO SCH (21:33)
[2021-01-24] MEDS: METHADONE HCL 40 MG DISPERSABLE TABLET PO SCH (06:35)
[2021-01-24] MEDS: amLODIPine BESYLATE 10 MG TABLET (FP) PO SCH (10:06)
[2021-01-24] MEDS: PRENATAL VITAMINS W/ FOLIC ACID TABLET (FP) PO SCH (10:06)
[2021-01-24] MEDS: hydrOXYzine PAMOATE 25 MG CAPSULE (FP) PO PRN ×2 (10:06→21:04)
[2021-01-24] MEDS: cloNIDine HCL 0.1 MG TABLET PO SCH (10:06)
[2021-01-24] MEDS: CALCIUM CARBONATE 650 MG TABLET PO SCH (10:07)
[2021-01-24] MEDS: DOCUSATE SODIUM 100 MG CAPSULE (FP) PO SCH (10:07)
[2021-01-24] MEDS: MELATONIN 5 MG TABLETS PO SCH (21:03)
[2021-01-24] MEDS: THIAMINE HCL 100 MG TABLET (FP) PO SCH (21:04)
[2021-01-24] MEDS: MIRTAZAPINE 15 MG TABLET (FP) PO SCH (21:04)
[2021-01-25] MEDS: METHADONE HCL 40 MG DISPERSABLE TABLET PO SCH (06:08)
[2021-01-25] MEDS ORDERED: PT OWN MED DRAWER 7, Y5N ONE (09:06)
[2021-01-25] MEDS: cloNIDine HCL 0.1 MG TABLET PO SCH (10:21)
[2021-01-25] MEDS: amLODIPine BESYLATE 10 MG TABLET (FP) PO SCH (10:21)
[2021-01-25] MEDS: SIMETHICONE 80 MG TAB.CHEW (FP) PO PRN (10:21)
[2021-01-25] MEDS: PRENATAL VITAMINS W/ FOLIC ACID TABLET (FP) PO SCH (10:21)
[2021-01-25] MEDS: DOCUSATE SODIUM 100 MG CAPSULE (FP) PO SCH (10:22)
[2021-01-25] MEDS: CALCIUM CARBONATE 650 MG TABLET PO SCH (10:23)
[2021-01-25] MEDS: THIAMINE HCL 100 MG TABLET (FP) PO SCH (21:38)
[2021-01-25] MEDS: MENTHOL/PHENOL 1 EACH UD MM PRN (21:38)
[2021-01-25] MEDS: MELATONIN 5 MG TABLETS PO SCH (21:38)
[2021-01-25] MEDS: MIRTAZAPINE 15 MG TABLET (FP) PO SCH (21:38)
[2021-01-25] MEDS: hydrOXYzine PAMOATE 25 MG CAPSULE (FP) PO PRN (21:39)
[2021-01-26] MEDS: METHADONE HCL 40 MG DISPERSABLE TABLET PO SCH (05:59)
[2021-01-26 07:10] VITALS: TEMP 97.7
[2021-01-26] MEDS: PRENATAL VITAMINS W/ FOLIC ACID TABLET (FP) PO SCH (09:51)
[2021-01-26] MEDS: amLODIPine BESYLATE 10 MG TABLET (FP) PO SCH (09:51)
[2021-01-26] MEDS: hydrOXYzine PAMOATE 25 MG CAPSULE (FP) PO PRN (09:51)
[2021-01-26] MEDS: cloNIDine HCL 0.1 MG TABLET PO SCH (09:51)
[2021-01-26] MEDS: CALCIUM CARBONATE 650 MG TABLET PO SCH (09:53)
[2021-01-26] MEDS: DOCUSATE SODIUM 100 MG CAPSULE (FP) PO SCH (09:53)
[2021-01-26] MEDS ORDERED: PT OWN MED DRAWER 7, Y5N ONE (09:53)
[2021-01-26 10:21] VITALS: BP 132/72; PULSE 100
== END 2021-01-26 09:55 | disposition home or self-care (01) | DRG 772 ==
LOC: YASAS 22:49 → Y3W 22:50
PROVIDERS: ADMIT Allergy & Immunology; ATTEND Allergy & Immunology
PROC: HZ42ZZZ Group Counseling for Substance Abuse Treatment, Cognitive-Behavioral (ICD-10-PCS; principal; 2021-01-26)
DX: F10.20 Alcohol dependence, uncomplicated (principal); F11.20 Opioid dependence, uncomplicated; F13.20 Sedative, hypnotic or anxiolytic dependence, uncomplicated; Z21 Asymptomatic human immunodeficiency virus [HIV] infection status; B37.0 Candidal stomatitis; K59.00 Constipation, unspecified; R35.0 Frequency of micturition; R35.1 Nocturia; R14.1 Gas pain
CPT/HCPCS: 36415; 85025; C9803; J0735; U0003